=== PATIENT | male | born 1955 | race Caucasian/White ===

== ENCOUNTER 2018-12-05 10:42 | Outpatient (REF) | payer OTHER, SELFPAY ==
[2018-12-05 15:06] LABS: COMMENT (LAB VIEW ONLY) 86.16 mg/dL; Microalb ug/mg Crea 2.8 ug/mg Cr
== END 2018-12-05 11:02 ==
LOC: NCHCN 10:42
PROVIDERS: PCP Nurse Practitioner; Visit Provider Nurse Practitioner
DX: E11.9 Type 2 diabetes mellitus without complications (principal)
CPT/HCPCS: 82043; 82570

== ENCOUNTER 2019-12-19 11:10 | Outpatient (REF) | payer OTHER, SELFPAY ==
[2019-12-19 15:47] LABS: ALT 22 U/L (16-63); AST 16 U/L (15-37); Albumin 3.8 g/dL (3.4-5.0); Alkaline Phosphatase 78 U/L (46-116); Anion Gap 7.9 mmol/L (3-11); BUN 12 mg/dL (7-18); Bilirubin, Total 0.8 mg/dL (0.2-1.0); CO2 29.1 mmol/L (21.0-32.0); CREATININE 0.98 mg/dL (0.70-1.30); Calcium 8.6 mg/dL (8.5-10.1); Calculated LDL 96 mg/dL (<100); Chloride 103 mmol/L (98-107); Cholesterol 161 mg/dL (<200); Glucose 124 mg/dL (74-106); HDL Cholesterol 47 mg/dL (40-60); Potassium 4.1 mmol/L (3.5-5.1); Sodium 140 mmol/L (136-145); TSH (W/Ref FT4) 2.46 uIU/mL (0.36-3.74); Total Protein 6.7 g/dL (6.4-8.2); Triglyceride 90 mg/dL (<150)
[2019-12-19 15:54] LABS: Hemoglobin A1C 6.4 % (3.8-5.6)
== END 2019-12-19 11:30 ==
LOC: NCHCN 11:10
PROVIDERS: PCP Nurse Practitioner; Visit Provider Nurse Practitioner
DX: E11.9 Type 2 diabetes mellitus without complications (principal); I10 Essential (primary) hypertension; E78.5 Hyperlipidemia, unspecified; E03.9 Hypothyroidism, unspecified
CPT/HCPCS: 80053; 80061; 83036; 84443

== ENCOUNTER 2020-05-27 10:47 | Outpatient (REF) | payer OTHER, SELFPAY ==
[2020-05-27 19:07] LABS: COMMENT (LAB VIEW ONLY) 106.15 mg/dL; Microalb ug/mg Crea 2.4 ug/mg Cr
== END 2020-05-27 11:07 ==
LOC: NCHCN 10:47
PROVIDERS: PCP Nurse Practitioner; Visit Provider Nurse Practitioner
DX: E11.9 Type 2 diabetes mellitus without complications (principal)
CPT/HCPCS: 82043; 82570

== ENCOUNTER 2021-11-04 13:40 | Outpatient (REF) | payer OTHER, SELFPAY ==
[2021-11-04 15:29] LABS: ALT 27 U/L (16-63); AST 13 U/L (15-37); Albumin 4.1 g/dL (3.4-5.0); Alkaline Phosphatase 84 U/L (46-116); Anion Gap 9.3 mmol/L (3-11); BUN 13 mg/dL (7-18); Bilirubin, Total 1.1 mg/dL (0.2-1.0); CO2 26.7 mmol/L (21.0-32.0); CREATININE 0.8 mg/dL (0.70-1.30); Calcium 8.6 mg/dL (8.5-10.1); Calculated LDL 99 mg/dL (<100); Chloride 106 mmol/L (98-107); Cholesterol 169 mg/dL (<200); Glucose 58 mg/dL (74-106); HDL Cholesterol 55 mg/dL (40-60); Potassium 3.9 mmol/L (3.5-5.1); Sodium 142 mmol/L (136-145); Triglyceride 77 mg/dL (<150)
[2021-11-04 16:32] LABS: COMMENT (LAB VIEW ONLY) 75.34 mg/dL; Microalb ug/mg Crea 5.3 ug/mg Cr
== END 2021-11-04 13:41 | disposition home or self-care (01) ==
LOC: NCHCN 13:40
PROVIDERS: PCP Nurse Practitioner; Visit Provider Nurse Practitioner Family
DX: E11.9 Type 2 diabetes mellitus without complications (principal); I10 Essential (primary) hypertension; E03.9 Hypothyroidism, unspecified; E66.9 Obesity, unspecified
CPT/HCPCS: 80053; 80061; 82043; 82570; 84443

== ENCOUNTER 2022-02-14 08:57 | Emergency (ER) | payer OTHER, SELFPAY ==
[2022-02-14] VITALS (11 sets, daily range): BP systolic 130–149; BP diastolic 61–70; PULSE 78–95; RESP 16–25; TEMP 36.7; O2SAT 92–99
--- NOTE | 2022-02-14 09:07 | W.ED.GENAD ---
Discharge Plan Disposition Patient Disposition: HOME Condition: Improving Discharge Details Clinical Impression: Right shoulder strain Primary Care Provider: Ann-Marie Golden ED Provider: German Grace Home Meds and New Rx's Prescriptions: Continued Ozempic 1 mg/dose (4 mg/3 mL) pen injector 1 mg subcut QWEEK lisinopril 5 mg tablet 5 mg PO DAILY ibuprofen 200 mg tablet 600 mg PO TID PRN clobetasol 0.05 % cream 1 applic topical BID metformin 500 MG tablet 1,000 mg PO BID aspirin [Aspir-81] 81 MG tablet,delayed release (DR/EC) 81 mg PO DAILY simvastatin 40 MG tablet 40 mg PO DAILY levothyroxine 50 MCG tablet 50 mcg PO DAILY lisinopril 10 MG tablet 10 mg PO DAILY cholecalciferol (vitamin D3) [Vitamin D3] 2,000 UNIT capsule 2,000 unit PO DAILY Discharge Instructions Instructions: Shoulder Sprain (ED), Shoulder Pain (ED) Additional Instructions: Apply ice to area 20 minutes at a time today to reduce pain and swelling. You likely will have increased muscular soreness over the next 24 hours. May use sling as needed for comfort. If you feel benefit of the swelling beyond 3 to 5 days, please begin gentle range of motion exercises to prevent a frozen shoulder. May continue your ibuprofen as needed for pain. Return to the emergency department for any acute concerns Medical Decision Making 66-year-old male walking his 100 pound dog on a leash. The dog pulled to kaity a cat wrenching the patient's right arm outwardly and having him fall to the ground with arm against his body. There is no loss of conscious. Denies head/neck/back pain complains of right arm pain and right anterior chest pain that hurts to touch and with movement of the right arm. Primary and secondary survey did not reveal evidence of significant blunt trauma. He certainly has evidence of muscular strain or injury to the right pectoral muscle, chest wall and right arm. Must exclude underlying rib fracture or glenohumeral injury. Patient referred for plain radiographs. X-rays do not reveal underlying bony injury. He certainly has a right shoulder strain. He will benefit from as needed use of a sling as well as conservative management at home. Patient reassured, he is appropriate for discharge at this time. HPI General Mode of arrival: ambulatory. Date/Time Provider Initiated Documentation: 02/14/22 08:58. Limitations to Documentation: no limitations. Information obtained by: patient. History of Present Illness 66 year old M presents to the emergency department with the chief complaint of Right arm and chest pain after fall, described as moderate, Quality is described as dull and constant, and is localized to the chest, right and upper extremity. Patient reports no radiation. Patient started experiencing this minute(s) and it has been constant. Rest improves symptom(s), Movement worsens symptoms . Patient notes denies cough, headaches, syncope and weakness. Patient did receive the following treatments prior to arrival, none Related Data Home Medications Medication Instructions Recorded Confirmed aspirin 81 mg tablet,delayed 81 mg PO DAILY 05/31/16 02/14/22 release (Aspir-) cholecalciferol (vitamin D3) 50 2,000 unit PO DAILY 05/31/16 02/14/22 mcg (2,000 unit) capsule (Vitamin D3) levothyroxine 50 mcg tablet 50 mcg PO DAILY 05/31/16 02/14/22 lisinopril 10 mg tablet 10 mg PO DAILY 05/31/16 02/14/22 metformin 500 mg tablet 1,000 mg PO BID 05/31/16 02/14/22 simvastatin 40 mg tablet 40 mg PO DAILY 05/31/16 02/14/22 clobetasol 0.05 % topical cream 1 applic topical BID 08/07/21 ibuprofen 200 mg tablet 600 mg PO TID PRN 08/07/21 02/14/22 lisinopril 5 mg tablet 5 mg PO DAILY 08/07/21 02/14/22 semaglutide 1 mg/dose (4 mg/3 mL) 1 mg subcut QWEEK 08/07/21 02/14/22 subcutaneous pen injector (Ozempic) Allergies Allergy/AdvReac Type Severity Reaction Status Date / Time No Known Allergies Allergy Verified 02/14/22 09:03 General Stated Complaint: Trauma ARNEL: 3 Review of Systems Narrative: No syncope. Denies head/neck/abdominal pain. Right lower reproducible rib pain. 6 systems were reviewed and otherwise negative PFSH All Active Problems (Updated 02/14/22 @ 10:00 by German Grace MD) Right shoulder strain (Acute) Conductive hearing loss, external ear (Acute) Medical History DM (diabetes mellitus) High cholesterol Hyperlipidemia Hypertension Hypothyroidism Impacted cerumen, bilateral Obesity Psoriasis Vitamin D deficiency Surgical History Colonoscopy - IV Sedation (05/31/16) Family History Father Heart disease Social History Smoking/Tobacco Use Status: Former Tobacco Use Smoking risk assessment performed?: Yes Alcohol Intake: never Drug use: Never current occupation: payloader machine operator Do you feel safe at home: Yes Do you feel safe in your relationship?: Yes Exam Narrative Exam Narrative: GEN: awake, alert, oriented 3. Pleasant, well groomed, interactive. HEAD: Normocephalic, atraumatic ENT: Mucous membranes moist, oropharynx unremarkable, External ear exam unremarkable EYES: PERRL, EOMI NECK: Full ROM, no MIRIAN, no menigismus, nontender, no step-off or deformity. The remainder of the thoracic and lumbar spine was nontender without step-off or deformity CHEST/RESP: Right lower anterolateral rib tenderness, no crepitus, clear to auscultation bilateral, no wheeze/rhonchi/rales CARDIOVASCULAR: RRR, no murmur, rub debora. 2+ Rad pulse bilateral ABDOMEN: Soft, nontender, no mass. +Bowel sounds EXT: Full ROM, right glenohumeral tenderness to palpation, motor 5 out of 5, sensation intact throughout. Neuro: Grossly normal neurologic exam, conversant, interactive. Psych: Speech fluent, thoughts congruent, affect normal Course Vital Signs Vital signs: Vital Signs Temperature 36.7 C 02/14/22 08:57 Pulse 90 02/14/22 08:57 Respiratory Rate 18 02/14/22 08:57 Blood Pressure 149/70 H 02/14/22 08:57 Pulse Oximetry 99 02/14/22 08:57 Temperature 36.7 C 02/14/22 08:57 Temperature Source Tympanic 02/14/22 08:57 Pulse 90 02/14/22 08:57 Respiratory Rate 18 02/14/22 08:57 Blood Pressure 149/70 H 02/14/22 08:57 Blood Pressure Position Supine 02/14/22 08:57 Pulse Oximetry 99 02/14/22 08:57 Oxygen Delivery Method Room Air 02/14/22 08:57 Oxygen Flow Rate 0 02/14/22 08:57
--- NOTE | 2022-02-14 09:54 | DI.RAD_ITS ---
Exam(s) XR SHOULDER RT COMPLETE 2+V EXAM: XR SHOULDER RT COMPLETE 2+V CLINICAL HISTORY: R arm pain after fall. TECHNIQUE: 2D digital imaging was performed. COMPARISON: No exams were available for comparison FINDINGS: Four views No evidence of acute fracture or dislocation or abnormal soft tissue calcifications. Subacromial spa ce is not diminished. No degenerative changes in the glenohumeral and AC joints. There is, however, small osteophytic ridge on the undersurface of the acromion. This may be causing some impingement. Coracoid process unremarkable. No evidence of os acromiale. IMPRESSION: No fractures. DATA REPOSITORY: RADIATION DOSE DELIVERED:
--- NOTE | 2022-02-14 09:54 | DI.RAD_ITS ---
Exam(s) XR RIBS RT PA CHEST 3V EXAM: XR RIBS RT PA CHEST 3V CLINICAL HISTORY: R anterior chest pain after fall. TECHNIQUE: 2D digital imaging was performed. COMPARISON: CR CHEST 2 VIEWS PA,LAT from 09/19/2017 FINDINGS: Total 6 views: Right ribs four views: No evidence of acute right rib fracture. Healed 7th rib fracture.. Also heal ed right 8th rib fracture. No osseous lesions in the right rib cage. Chest x-ray-two views: Heart size normal. Mediastinum is not widened. No infiltrates nor pleural ef fusions. Scar-like density in the lateral left lung base is unchanged from 2018 and therefore benign . IMPRESSION: No acute right rib fractures. Healed right 7th and 8th ribs fractures noted. No acute pulmonary findings. Left lung base scarring, unchanged from 2018. DATA REPOSITORY: RADIATION DOSE DELIVERED:
--- NOTE | 2022-02-14 10:14 | DI.VRAD_ITS ---
PROCEDURE INFORMATION: Exam: XR Right Shoulder Exam date and time: 02/14/2022 9:37 AM Age: 66 years old Clinical indication: Injury or trauma; Fall; Blunt trauma (contusions or hematomas); Shoulder; Right TECHNIQUE: Imaging protocol: Radiologic exam of the Right shoulder. Views: 2 or more views. COMPARISON: CR CHEST 2 VIEWS PA,LAT 09/19/2017 4:37 PM FINDINGS: Bones/joints: Chronic appearing right lateral 7th rib fracture. no acute fracture or dislocation. Soft tissues: unremarkable soft tissues. IMPRESSION: No acute findings. Dictated and Authenticated by: Khurram Knapp MD. Ordering:CESAR Porter MD
--- NOTE | 2022-02-14 10:17 | DI.VRAD_ITS ---
PROCEDURE INFORMATION: Exam: XR Chest Exam date and time: 02/14/2022 9:41 AM Age: 66 years old Clinical indication: Injury or trauma; Fall; Blunt trauma (contusions or hematomas) TECHNIQUE: Imaging protocol: Radiologic exam of the chest. Views: 1 view. COMPARISON: CR CHEST 2 VIEWS PA,LAT 09/19/2017 4:37 PM FINDINGS: Lungs: No consolidation. Pleural spaces: No sizable pleural effusion. No pneumothorax. Heart/Mediastinum: Cardiomediastinal silhouette is within normal limits. Bones/joints: No acute fracture or dislocation. Chronic appearing right lateral 7th rib fracture. Soft tissues: there is a small metallic density seen projecting along the right chest/abdominal wall. Suspected to represent a marker. Please correlate with physical exam. Unremarkable soft tissues. IMPRESSION: As above. Dictated and Authenticated by: Khurram Knapp MD. Ordering:CESAR Porter MD
== END 2022-02-14 10:27 | disposition home or self-care (01) ==
LOC: ER 10:31
PROVIDERS: Emergency Provider Emergency Medicine; PCP Nurse Practitioner Family
DX: S46.911A Strain of unspecified muscle, fascia and tendon at shoulder and upper arm level, right arm, initial encounter (principal); I10 Essential (primary) hypertension; E11.9 Type 2 diabetes mellitus without complications; Z87.891 Personal history of nicotine dependence; X50.1XXA Overexertion from prolonged static or awkward postures, initial encounter; W18.30XA Fall on same level, unspecified, initial encounter; Y93.K1 Activity, walking an animal; Z79.84 Long term (current) use of oral hypoglycemic drugs; Z79.899 Other long term (current) drug therapy
CPT/HCPCS: 99284; 71046; 71100; 73030; 99282

== ENCOUNTER → 2022-02-23 19:02 | Outpatient (CLI) | payer OTHER, SELFPAY ==
--- NOTE | 2022-02-23 14:08 | DI.RAD_ITS ---
Exam(s) XR RIBS ONLY RT EXAM: XR RIBS ONLY RT CLINICAL HISTORY: RT-SIDED RIB PAIN, R07.81, CONTINUED RT LOWER ANTEROLATERAL TENDERNESS. COMPARISON: CR,XR XR RIBS RT PA CHEST 3V from 02/14/2022 FINDINGS: Four views were obtained. LUNGS: Clear. No pneumothorax is seen. BONES: There is a nondisplaced fracture of the posterolateral aspect of the right 5th rib. [place] right rib fractures are seen. There is a lucency seen through the anterior aspect of the right 10t h rib. This may represent a fracture versus overlying artifact. No bony destructive lesion is seen. IMPRESSION: 1. Nondisplaced fracture of the posterolateral aspect of the right 5th rib. 2. Fracture versus artifact at the anterior aspect of the right 10th rib.
== END ==
PROVIDERS: PCP Nurse Practitioner Family; Visit Provider Nurse Practitioner Family
DX: S22.31XA Fracture of one rib, right side, initial encounter for closed fracture (principal); X58.XXXA Exposure to other specified factors, initial encounter
CPT/HCPCS: 71100

== ENCOUNTER 2022-09-09 09:36 | Outpatient (REF) | payer OTHER, SELFPAY ==
[2022-09-09 15:05] LABS: Abs Immature Grans 0.01 10^3/uL (0.0-0.06); Absolute Basophil Count 0.04 10^3/uL (0.0-0.2); Absolute Eosinophil Count 0.24 10^3/uL (0.0-0.7); Absolute Lymphocyte Count 1.36 10^3/uL (1.2-3.4); Absolute Monocyte Count 0.51 10^3/uL (0.1-0.8); Absolute Neutrophil Count 5.06 10^3/uL (1.2-6.7); Basophils % 0.6; Eosinophils % 3.3; HCT 38.3 % (40.0-50.0); HGB 12.8 g/dL (13.5-17.5); Immature Grans % 0.1; Lymphocytes % 18.8; MCHC 33.4 % (32.0-36.0); MCV 87 fL (80-95); MPV 10.6 fL (8.0-11.0); Monocytes % 7.1; Neutrophils % 70.1; Platelet Count 263 10^3/uL (130-400); RBC 4.42 10^6/uL (4.36-5.78); RDW 12.5 % (11.8-14.1); RDW-SD 39.8 fL; WBC 7.22 10^3/uL (4.4-10.8)
[2022-09-09 15:17] LABS: COMMENT (LAB VIEW ONLY) 116.48 mg/dL; Microalb ug/mg Crea 3.9 ug/mg Cr
[2022-09-09 15:27] LABS: ALT 19 U/L (16-63); AST 13 U/L (15-37); Albumin 3.9 g/dL (3.4-5.0); Alkaline Phosphatase 79 U/L (46-116); BUN 8 mg/dL (7-18); Bilirubin, Total 1.2 mg/dL (0.2-1.0); CREATININE 0.9 mg/dL (0.70-1.30); Calcium 8.9 mg/dL (8.5-10.1); Chloride 105 mmol/L (98-107); Estimated GFR 92.45 (mL/min/1.73m2); Glucose 131 mg/dL (74-106); Potassium 4.1 mmol/L (3.5-5.1); Sodium 140 mmol/L (136-145); TSH (W/Ref FT4) 2.01 uIU/mL (0.36-3.74); Total Protein 6.9 g/dL (6.4-8.2)
[2022-09-09 15:40] LABS: Vitamin D 25 Total 42.7 ng/mL (30-100)
[2022-09-09 15:49] LABS: Calculated LDL 69 mg/dL (<100); Cholesterol 137 mg/dL (<200); HDL Cholesterol 56 mg/dL (40-60); Triglyceride 61 mg/dL (<150)
== END 2022-09-09 09:37 | disposition home or self-care (01) ==
LOC: NCHCN 09:36
PROVIDERS: PCP Nurse Practitioner Family; Visit Provider Nurse Practitioner Family
DX: E11.9 Type 2 diabetes mellitus without complications (principal); E78.5 Hyperlipidemia, unspecified; E03.9 Hypothyroidism, unspecified; E55.9 Vitamin D deficiency, unspecified; I10 Essential (primary) hypertension; R06.83 Snoring
CPT/HCPCS: 80053; 80061; 82306; 82043; 82570; 84443; 85025

== ENCOUNTER 2023-09-06 12:33 | Outpatient (REF) | payer OTHER, SELFPAY ==
[2023-09-06 15:28] LABS: HCT 40.5 % (40.0-50.0); HGB 13.5 g/dL (13.5-17.5); MCH 29.2 pg (27.0-33.0); MCHC 33.3 % (32.0-36.0); MCV 88 fL (80-95); MPV 10.7 fL (8.0-11.0); Platelet Count 313 10^3/uL (130-400); RBC 4.63 10^6/uL (4.36-5.78); RDW 12.4 % (11.8-14.1); RDW-SD 39.1 fL; WBC 5.81 10^3/uL (4.4-10.8)
[2023-09-06 15:49] LABS: Hemoglobin A1C 6.5 % (<5.7)
[2023-09-06 16:56] LABS: ALT 28 U/L (16-63); AST 19 U/L (15-37); Albumin 3.8 g/dL (3.4-5.0); Alkaline Phosphatase 71 U/L (46-116); BUN 8 mg/dL (7-18); Bilirubin, Total 0.8 mg/dL (0.2-1.0); CREATININE 0.8 mg/dL (0.70-1.30); Calcium 8.7 mg/dL (8.5-10.1); Calculated LDL 86 mg/dL (<100); Chloride 104 mmol/L (98-107); Cholesterol 158 mg/dL (<200); Estimated GFR 95.21 (mL/min/1.73m2); Glucose 121 mg/dL (74-106); HDL Cholesterol 66 mg/dL (40-60); Potassium 4.3 mmol/L (3.5-5.1); Sodium 139 mmol/L (136-145); TSH (W/Ref FT4) 2.13 uIU/mL (0.36-3.74); Triglyceride 34 mg/dL (<150)
[2023-09-06 17:42] LABS: Vitamin D 25 Total 46.1 ng/mL (30-100)
== END 2023-09-06 12:34 | disposition home or self-care (01) ==
LOC: NCHCN 12:33
PROVIDERS: PCP Nurse Practitioner Family; Visit Provider Nurse Practitioner Family
DX: E11.9 Type 2 diabetes mellitus without complications (principal); E03.9 Hypothyroidism, unspecified; E78.5 Hyperlipidemia, unspecified; E55.9 Vitamin D deficiency, unspecified
CPT/HCPCS: 80053; 80061; 82306; 85027; 83036; 84443

== ENCOUNTER 2024-09-11 13:50 | Outpatient (REF) | payer MEDICARE, SELFPAY ==
[2024-09-11 16:15] LABS: Hemoglobin A1C 6.3 % (<5.7)
[2024-09-11 16:21] LABS: COMMENT (LAB VIEW ONLY) 57.46 mg/dL; Microalb ug/mg Crea 6.8 ug/mg Cr
[2024-09-11 16:37] LABS: ALT 18 U/L (16-63); AST 12 U/L (15-37); Alkaline Phosphatase 71 U/L (46-116); Anion Gap 7.1 mmol/L (3-11); BUN 11 mg/dL (7-18); Bilirubin, Total 1.58 mg/dL (0.2-1.0); CO2 28.9 mmol/L (21.0-32.0); CREATININE 0.9 mg/dL (0.70-1.30); Calcium 9.1 mg/dL (8.5-10.1); Calculated LDL 83 mg/dL (<100); Chloride 105 mmol/L (98-107); Cholesterol 162 mg/dL (<200); Estimated GFR 91.31 (mL/min/1.73m2); Glucose 129 mg/dL (74-106); HDL Cholesterol 68 mg/dL (40-60); Potassium 4.8 mmol/L (3.5-5.1); Sodium 141 mmol/L (136-145); TSH (W/Ref FT4) 2.59 uIU/mL (0.36-3.74); Triglyceride 59 mg/dL (<150)
== END 2024-09-11 13:51 | disposition home or self-care (01) ==
LOC: NCHCN 13:50
PROVIDERS: PCP Nurse Practitioner Family; Visit Provider Nurse Practitioner Family
DX: E11.9 Type 2 diabetes mellitus without complications (principal); Z00.00 Encounter for general adult medical examination without abnormal findings
CPT/HCPCS: 80053; 80061; 82043; 82570; 83036; 84443

== ENCOUNTER 2024-12-04 12:16 | Outpatient (CLI) | payer MEDICARE, SELFPAY ==
--- NOTE | 2024-12-04 | DI.RAD_ITS ---
Exam(s) XR CHEST 2V PA LATERAL EXAM: XR CHEST 2V PA LATERAL CLINICAL HISTORY: SOB R06.02 R/O PNEUMONIA TECHNIQUE: 2D digital imaging was performed of the chest. Two images were obtained. PA and lateral views were obtained. COMPARISON: CR,XR XR RIBS RT PA CHEST 3V from 02/14/2022 CR XR RIBS ONLY RT from 02/23/2022 FINDINGS: MEDIASTINUM: Normal. HEART: Normal. PULMONARY VASCULATURE: Normal. LUNGS: Unchanged scarring seen in the left lung base. Possible increased opacity in the left lingula . The right lung appears clear. PLEURAL SPACE: No pleural effusion or pneumothorax. BONE:Within normal limits for the patient's age. Old healed right rib fracture deformities. OTHER FINDINGS:Normal. IMPRESSION: Question of a left lingular infiltrate. DATA REPOSITORY: RADIATION DOSE DELIVERED:
== END 2024-12-04 12:36 ==
LOC: DI 12:16
PROVIDERS: PCP Nurse Practitioner Family; Visit Provider Nurse Practitioner Family
DX: R06.02 Shortness of breath (principal); R91.8 Other nonspecific abnormal finding of lung field
CPT/HCPCS: 71046